=== PATIENT | male | born 1940 | race American Indian/Alaskan Native ===

== ENCOUNTER 2017-09-02 16:10 | Emergency (ER) | payer MEDICAID, MEDICARE, OTHER ==
[2017-09-02] MEDS ORDERED: Ondansetron 4 MG/2 ML SDV IVPUSH ONE (16:38)
[2017-09-02] MEDS ORDERED: Sodium Chloride 0.9% 1,000 ML IV SCH ×2 (16:45→22:00)
--- NOTE | 2017-09-02 20:15 | EDM.PDOC ---
ED HPI GENERAL MEDICAL PROBLEM - General Chief Complaint: General Stated Complaint: abdominal pain Time Seen by Provider: 09/02/17 16:10 Source of Information: Reports: Patient, Family History Limitations: Reports: Physical Impairment - History of Present Illness INITIAL COMMENTS - FREE TEXT/NARRATIVE: 77 y.o.w.m s/o emergent endoluminal repair of ruptured AAA using [employer] on 08/25/2017. He walked in the ed with his niece because of abs. pain, vomiting, unable to eat and not pass stool. Pt is a poor historian. BP 136/62 pulse 86 Temp 36.6 Pulse ox 98% on RA Onset Date: 09/01/17 Onset Time: 07:00 Duration: Day(s): Location: Reports: Abdomen Quality: Reports: Ache, Dull, Pressure, Same as Previous Episode Severity: Moderate Improves with: Reports: Rest Worsens with: Reports: Movement Context: Reports: Other (AAA repair) Associated Symptoms: Reports: Loss of Appetite, Nausea/Vomiting, Weakness abdomen Pain Score (Numeric/FACES): 3 - Related Data Allergies Allergy/AdvReac Type Severity Reaction Status Date / Time No Known Allergies Allergy Verified 09/02/17 16:32 Home Meds: Home Meds NK [No Known Home Meds] 09/02/17 [History] Social & Family History - Family History Family Medical History: Noncontributory - Tobacco Use Smoking Status *Q: Current Every Day Smoker Years of Tobacco use: 64 Packs/Tins Daily: 1 - Caffeine Use Caffeine Use: Reports: Coffee, Soda - Recreational Drug Use Recreational Drug Use: No ED ROS GENERAL - Review of Systems Review Of Systems: Unable To Obtain ED EXAM, GENERAL - Physical Exam Exam: See Below Exam Limited By: Physical Impairment General Appearance: Alert, Moderate Distress, Obese Eye Exam: Bilateral Eye: Normal Inspection Ears: Normal External Exam Ear Exam: Bilateral Ear: Auricle Normal Nose: Normal Inspection Throat/Mouth: No Airway Compromise, Other (poor dentition) Head: Atraumatic, Normocephalic Neck: Normal Inspection, Supple, Non-Tender Respiratory/Chest: No Respiratory Distress, Normal Breath Sounds (poor insp effort) Cardiovascular: Normal Peripheral Pulses, Regular Rate, Rhythm, No Edema GI/Abdominal: Normal Bowel Sounds, Distended, Guarding, Rebound, Tender (Male) Exam: Deferred Rectal (Males) Exam: Deferred Back Exam: Normal Inspection, Full Range of Motion Extremities: Normal Inspection, Normal Range of Motion, Non-Tender Neurological: Alert, Oriented, CN II-XII Intact, Normal Gait (walked to the ed) Psychiatric: Normal Affect, Normal Mood Skin Exam: Warm, Dry, Intact, Normal Color, No Rash Lymphatic: No Adenopathy Course - Vital Signs Text/Narrative:: 77 y.o.w.m s/o emergent endoluminal repair of ruptured AAA using [employer] on 08/25/2017. He walked in the ed with his niece because of abs. pain, vomiting, unable to eat and not pass stool. Pt is a poor historian. Long H/O ETOH and tobacco use.BP 136/62 pulse 86 Temp 36.6 Pulse ox 98% on RA, Pt is not on blood thinner. PE: Unkempt 77 y.o.w.m with abd. pain. Abdomen is distended, hypoactive BS, tender with rebound. Labs: WBC 12.6 HGB 12.3 HCT 36.9 Ptl 481 BNP 4880, BUN 34 Cr. 1.4 GFR 49 INR is pending Imagin cm heterogeneous opacity right retroperitoneum suspicious of retoperitoneal hematoma. Please see report for details. Impression: Retroperitoneal Hematoma Tx: Zofran, NA, NG tube was placed, NS, [address] 8.00 pm Consultation: Dr. Montilla: Transfer to [facility] 8.10 pm Consultation: Dr. Rossi, Vascular surgeon [place]: did not call back because the surgery was not done at [facility], but [place] 8.50 pm consultation: Dr. Yousif, Vasular surgeon, [facility], [place]: Accepted the pt for transfer and further care/transport by Air Plan: Transfer to [facility] [place] Last Recorded V/S: Last Vital Signs Temp 36.8 C 09/02/17 16:10 Pulse 90 09/02/17 17:54 Resp 22 H 09/02/17 17:54 BP 126/52 L 09/02/17 17:54 Pulse Ox 94 L 09/02/17 17:54 - Orders/Labs/Meds Orders: Active Orders 24 hr Category Date Time Status Abdomen 2V AP Flat Upright [CR] Stat Exams 09/02/17 16:33 Taken Abdomen Pelvis wo Cont [CT] Stat Exams 09/02/17 18:28 Taken CXR [Chest 1V Frontal] [CR] Stat Exams 09/02/17 17:34 Taken Sodium Chloride 0.9% [Normal Saline] 1,000 ml Med 09/02/17 16:45 Active IV ASDIRECTED Sodium Chloride 0.9% [Normal Saline] 1,000 ml Med 09/02/17 22:00 Active IV ASDIRECTED Medication Orders Sodium Chloride (Normal Saline) 1,000 mls @ 125 mls/hr IV ASDIRECTED АННА Last Admin: 09/02/17 16:59 Dose: 125 mls/hr Sodium Chloride (Normal Saline) 1,000 mls @ 150 mls/hr IV ASDIRECTED АННА Labs: Laboratory Tests 09/02/17 09/02/17 09/02/17 Range/Units 16:45 16:45 16:45 WBC 12.2 H (4.5-12.0) X10-3/uL RBC 4.33 (4.30-5.75) x10(6)uL Hgb 12.3 (11.5-15.5) g/dL Hct 36.9 (30.0-51.3) % MCV 85.3 (80-96) fL MCH 28.5 (27.7-33.6) pg MCHC 33.4 (32.2-35.4) g/dL RDW 14.6 (11.5-15.5) % Plt Count 481 H (125-369) X10(3)uL MPV 7.6 (7.4-10.4) fL Add Manual Diff Yes Neutrophils % (Manual) 80 (46-82) % Lymphocytes % (Manual) 10 L (13-37) % Monocytes % (Manual) 9 (4-12) % Basophils % (Manual) 1 (0-2) % PT (8.7-11.1) INR (0.89-1.13) Sodium 139 (135-145) mmol/L Potassium 4.9 (3.5-5.3) mmol/L Chloride 102 (100-110) mmol/L Carbon Dioxide 27 (21-32) mmol/L BUN 34 H (7-18) mg/dL Creatinine 1.4 H (0.70-1.30) mg/dL Est Cr Clr Drug Dosing TNP Estimated GFR (MDRD) 49 L (>60) BUN/Creatinine Ratio 24.3 H (9-20) Glucose 125 H (80-116) mg/dL Calcium 9.6 (8.6-10.2) mg/dL Total Bilirubin 1.2 (0.1-1.3) mg/dL Direct Bilirubin 0.39 H (0.10-0.20) mg/dL AST 55 H (5-25) IU/L ALT 47 H (12-36) U/L Alkaline Phosphatase 300 H (56-112) IU/L NT-Pro-B Natriuret Pep 4880 H* (<=450) pg/mL Total Protein 8.4 H (6.0-8.0) g/dL Albumin 2.9 L (3.2-4.6) g/dL Amylase 69 (25-115) U/L Urine Color (YELLOW) Urine Appearance (CLEAR) Urine pH (5.0-6.5) Ur Specific [place] (1.010-1.025) Urine Protein (NEGATIVE) mg/dL Urine Glucose (UA) (NEGATIVE) mg/dL Urine Ketones (NEGATIVE) mg/dL Urine Occult Blood (NEGATIVE) Urine Nitrite (NEGATIVE) Urine Bilirubin (NEGATIVE) Urine Urobilinogen (NEGATIVE) mg/dL Ur Leukocyte Esterase (NEGATIVE) Urine RBC (0) Urine WBC (0) Ur Squamous Epith Cells (NS,R,O) Urine Bacteria (NS) Hyaline Casts (NS) 09/02/17 09/02/17 Range/Units 16:45 18:00 WBC (4.5-12.0) X10-3/uL RBC (4.30-5.75) x10(6)uL Hgb (11.5-15.5) g/dL Hct (30.0-51.3) % MCV (80-96) fL MCH (27.7-33.6) pg MCHC (32.2-35.4) g/dL RDW (11.5-15.5) % Plt Count (125-369) X10(3)uL MPV (7.4-10.4) fL Add Manual Diff Neutrophils % (Manual) (46-82) % Lymphocytes % (Manual) (13-37) % Monocytes % (Manual) (4-12) % Basophils % (Manual) (0-2) % PT 10.0 (8.7-11.1) INR 0.99 (0.89-1.13) Sodium (135-145) mmol/L Potassium (3.5-5.3) mmol/L Chloride (100-110) mmol/L Carbon Dioxide (21-32) mmol/L BUN (7-18) mg/dL Creatinine (0.70-1.30) mg/dL Est Cr Clr Drug Dosing Estimated GFR (MDRD) (>60) BUN/Creatinine Ratio (9-20) Glucose (80-116) mg/dL Calcium (8.6-10.2) mg/dL Total Bilirubin (0.1-1.3) mg/dL Direct Bilirubin (0.10-0.20) mg/dL AST (5-25) IU/L ALT (12-36) U/L Alkaline Phosphatase (56-112) IU/L NT-Pro-B Natriuret Pep (<=450) pg/mL Total Protein (6.0-8.0) g/dL Albumin (3.2-4.6) g/dL Amylase (25-115) U/L Urine Color [place] (YELLOW) Urine Appearance Slightly cloudy (CLEAR) Urine pH 5.0 (5.0-6.5) Ur Specific [place] 1.025 (1.010-1.025) Urine Protein 500 H (NEGATIVE) mg/dL Urine Glucose (UA) Normal (NEGATIVE) mg/dL Urine Ketones Negative (NEGATIVE) mg/dL Urine Occult Blood Large H (NEGATIVE) Urine Nitrite Negative (NEGATIVE) Urine Bilirubin Small H (NEGATIVE) Urine Urobilinogen 1 H (NEGATIVE) mg/dL Ur Leukocyte Esterase Negative (NEGATIVE) Urine RBC 20-30 H (0) Urine WBC 0-5 (0) Ur Squamous Epith Cells Moderate H (NS,R,O) Urine Bacteria Many H (NS) Hyaline Casts Many H (NS) Meds: Medications Generic Name Dose Route Start Last Admin Trade Name Freq PRN Reason Stop Dose Admin Sodium Chloride 1,000 mls @ 125 mls/hr 09/02/17 16:45 09/02/17 16:59 Normal Saline IV 125 mls/hr ASDIRECTED АННА Administration Sodium Chloride 1,000 mls @ 150 mls/hr 09/02/17 22:00 Normal Saline IV ASDIRECTED АННА Discontinued Medications Generic Name Dose Route Start Last Admin Trade Name James PRN Reason Stop Dose Admin Ondansetron HCl 8 mg 09/02/17 16:38 09/02/17 16:59 Zofran IVPUSH 09/02/17 16:39 8 mg ONETIME ONE Administration Departure - Discharge Information Referrals: PCP,None [Primary Care Provider] - Forms: ED Department Discharge - My Orders Last 24 Hours: My Active Orders 09/02/17 16:33 Abdomen 2V AP Flat Upright [CR] Stat 09/02/17 16:45 Sodium Chloride 0.9% [Normal Saline] 1,000 ml IV ASDIRECTED 09/02/17 17:34 CXR [Chest 1V Frontal] [CR] Stat 09/02/17 18:28 Abdomen Pelvis wo Cont [CT] Stat 09/02/17 22:00 Sodium Chloride 0.9% [Normal Saline] 1,000 ml IV ASDIRECTED - Assessment/Plan Last 24 Hours: My Active Orders 09/02/17 16:33 Abdomen 2V AP Flat Upright [CR] Stat 09/02/17 16:45 Sodium Chloride 0.9% [Normal Saline] 1,000 ml IV ASDIRECTED 09/02/17 17:34 CXR [Chest 1V Frontal] [CR] Stat 09/02/17 18:28 Abdomen Pelvis wo Cont [CT] Stat 09/02/17 22:00 Sodium Chloride 0.9% [Normal Saline] 1,000 ml IV ASDIRECTED
--- NOTE | 2017-09-04 12:15 | CR ---
INDICATION: Short of breath. CHEST: An AP upright portable view of the chest was obtained 09/02/2017. No comparisons are available. The heart did not appear enlarged. The aorta is tortuous with calcification in the arch. Overlying EKG leads are noted. An active infiltrate or effusion was not identified. IMPRESSION: No acute process. MTDD
--- NOTE | 2017-09-04 12:18 | CR ---
INDICATION: Abdominal pain. ABDOMEN: Five images of the abdomen in supine and decubitus projections revealed relative distention of the stomach compared with the remainder of the bowel. The possibility of a gastric outlet obstruction of mechanical nature or gastroparesis should be considered. Follow-up x-ray of the abdomen may be helpful for further evaluation of that finding. Otherwise, the pattern of gas and feces is fairly nonspecific. Skin hallie are noted in both inguinal areas. Degenerative changes and disk disease are noted in the lumbosacral spine with a mild dextroconcave scoliosis. Bridging hyperostotic changes off the vertebral bodies are noted. An aortoiliac stent is noted in place, apparently for aneurysm of the aorta. There is a bulge of the right psoas shadow, raising question of marked increase in density in that area, compatible with a large hematoma in that area after a hemorrhage from the adjacent abdominal aortic aneurysm. No other mass density, organomegaly, or non-vascular pathologic calcification could be identified. IMPRESSION: 1. Large abdominal aortic aneurysm with prominence along the psoas shadow on the right, suggesting a retroperitoneal bleed in that area - correlate clinically. 2. Degenerative changes, disk disease, scoliosis, lumbar spine. 3. Post-surgical abdominal aortic aneurysm. MTDD
== END 2017-09-02 23:40 ==
LOC: FB.ED 16:10
DX: K66.1 Hemoperitoneum (principal); F17.210 Nicotine dependence, cigarettes, uncomplicated; Z98.890 Other specified postprocedural states
CPT/HCPCS: 36415; 43752; 71045; 74019; 74176; 80048; 80076; 81001; 82150; 83880; 85025; 85610; 86850; 86900; 86901; 96361; 96374; 99285; J2405; J7040; J7030